=== PATIENT | female | born 1980 | race Hispanic/Latino ===

== ENCOUNTER 2018-10-23 19:35 | Inpatient (IN) | payer MEDICAID, OTHER ==
[2018-10-23 19:36] VITALS: BMI 40.9
[2018-10-23 23:01] LABS: BASO # 0.01 K/mm3 (0.0-2.0); BASO % 0.1 % (0.0-3.0); EOS # 0.4 (0.0-0.7); HEMOGLOBIN 12.8 g/dL (12.0-16.0); LYMPH # 2.4 (1.2-3.4); LYMPH % 27.6 % (22.0-35.0); MEAN CORPUSCULAR HEMOGLOBIN 28.4 pg (25.0-35.0); MEAN PLATELET VOLUME 9.9 fl (7.0-11.0); MONO # 0.6 (0.1-0.6); MONO % 6.8 % (1.0-6.0); RBC 4.51 10^6/uL (3.5-6.1); RED CELL DISTRIBUTION WIDTH 14.1 % (11.5-14.5); WHITE BLOOD COUNT 8.7 10^3/uL (4.5-11.0)
[2018-10-23 23:11] LABS: ACETAMINOPHEN < 10.0 ug/ml (10.0-20.0); SALICYLATE < 1 mg/dL (2.0-20.0)
[2018-10-23 23:13] LABS: ALB/GLOB RATIO 1.4 (1.1-1.8); ALBUMIN 4.3 g/dL (3.0-4.8); ALT/SGPT 13 U/L (7-56); AST/SGOT 20 U/L (14-36); BLOOD UREA NITROGEN 16 mg/dL (7-21); CALCIUM 9.3 mg/dL (8.4-10.5); GFR NON-AFRICAN AMERICAN > 60
[2018-10-23 23:16] LABS: URINE BILIRUBIN NEGATIVE (NEGATIVE); URINE BLOOD SMALL (NEGATIVE); URINE GLUCOSE (UA) NEGATIVE (NEGATIVE); URINE LEUKOCYTE ESTERASE NEGATIVE Leu/uL (NEGATIVE); URINE PROTEIN NEGATIVE mg/dL (<30 mg/dL); URINE UROBILINOGEN 0.2 E.U./dL (<1 E.U./dL)
[2018-10-23 23:24] LABS: URINE APPEARANCE CLEAR (CLEAR); URINE COLOR YELLOW (YELLOW)
[2018-10-23 23:37] LABS: URINE BACTERIA FEW /hpf
[2018-10-24 00:28] LABS: BARBITURATES, UR NEGATIVE (NEGATIVE); BENZODIAZEPINES, UR POSITIVE (NEGATIVE); OPIATES, UR NEGATIVE (NEGATIVE); PHENCYCLIDINE, UR NEGATIVE (NEGATIVE)
[2018-10-24 00:47] VITALS: O2SAT 96
--- NOTE | 2018-10-24 01:33 | ED PDOC ---
Arrival/HPI - General Historian: Patient - History of Present Illness Narrative History of Present Illness (Text): 10/24/18 01:29 38-year-old female with a history of PTSD, depression presents today with depression and hallucinations. Patient denies headaches dizziness or weakness. No fevers or chills. No abdominal pain. No nausea vomiting diarrhea or constipation. Patient states she's been taking her medications as prescribed but her symptoms seem to be worsening. <Symone Pisano - Last Filed: 10/24/18 01:29> <Juan José Ceballos - Last Filed: 10/24/18 02:10> - General Chief Complaint: Psychiatric Evaluation Time Seen by Provider: 10/23/18 19:40 Past Medical History - Provider Review Nursing Documentation Reviewed: Yes - Travel History Have you recently traveled outside [place] w/in the past 3 mons?: No - Infectious Disease Hx of Infectious Diseases: None - Reproductive Currently : No - Cardiac Hx Cardiac Disorders: No Hx Hypertension: Yes - Pulmonary Hx Tuberculosis: No - Neurological HX Cerebrovascular Accident: No Hx Seizures: No - HEENT Hx HEENT Disorder: No - Renal Hx Renal Disorder: No - Endocrine/Metabolic Hx Endocrine Disorders: No - Hematological/Oncological Hx Cancer: No - Integumentary Hx Dermatological Disorder: No - Musculoskeletal/Rheumatological Hx Musculoskeletal Disorders: No - Gastrointestinal Hx Gastrointestinal Disorders: No - Genitourinary/Gynecological Hx Sexually Transmitted Diseases: No - Psychiatric Hx Depression: Yes Hx Substance Use: No - Anesthesia Hx Anesthesia: No <Symone Pisano - Last Filed: 10/24/18 01:29> Family/Social History - Physician Review Nursing Documentation Reviewed: Yes Family/Social History: Unknown Family HX Smoking Status: Never Smoked Hx Alcohol Use: No Hx Substance Use: No <Symone Pisano - Last Filed: 10/24/18 01:29> Allergies/Home Meds <Symone Pisano - Last Filed: 10/24/18 01:29> <Juan José Ceballos - Last Filed: 10/24/18 02:10> Allergies/Adverse Reactions: Allergies No Known Allergies Allergy (Verified 08/15/16 17:31) Review of Systems - Review of Systems Constitutional: absent: Fatigue, Fevers Respiratory: absent: SOB, Cough Cardiovascular: absent: Chest Pain, Palpitations Gastrointestinal: absent: Abdominal Pain, Nausea, Vomiting Genitourinary Female: absent: Dysuria, Frequency, Hematuria Musculoskeletal: absent: Back Pain, Neck Pain Skin: absent: Rash, Pruritis Neurological: absent: Headache, Dizziness Psychiatric: Depression. absent: Anxiety <Symone Pisano - Last Filed: 10/24/18 01:29> Physical Exam Vital Signs Reviewed: Yes Vital Signs Temp Pulse Resp BP Pulse Ox 10/24/18 00:43 97.7 F 90 18 136/84 96 10/23/18 21:54 98.1 F 90 18 168/115 H 100 Temperature: Afebrile Blood Pressure: Hypertensive Pulse: Regular Respiratory Rate: Normal Appearance: Positive for: Well-Appearing, Non-Toxic, Comfortable Pain Distress: None Mental Status: Positive for: Alert and Oriented X 3 - Systems Exam Head: Present: Atraumatic Neck: Present: Normal Range of Motion Respiratory/Chest: Present: Clear to Auscultation Cardiovascular: Present: Regular Rate and Rhythm Abdomen: No: Tenderness, Rebound, Guarding Upper Extremity: Present: Normal ROM Lower Extremity: Present: Normal ROM Neurological: Present: GCS=15 Skin: Present: Warm, Dry, Normal Color. No: Rashes Psychiatric: Present: Alert, Oriented x 3 <Symone Pisano - Last Filed: 10/24/18 01:29> Vital Signs Temp Pulse Resp BP Pulse Ox 10/24/18 00:43 97.7 F 90 18 136/84 96 10/23/18 21:54 98.1 F 90 18 168/115 H 100 <Juan José Ceballos - Last Filed: 10/24/18 02:10> Medical Decision Making ED Course and Treatment: 10/24/18 01:30 Patient is nontoxic well-appearing in no distress vital signs are stable. CBC WNL CMP WNL Tylenol WNL Salicylate WNL Alcohol level WNL Urine drug screen + marijuana, + infected amines positive benzos UA; no leukocytes cxr: wnl ekg normal sinus rhythm at 86 bpm normal axis no ST elevations QTC 442 pt is medically cleared for PES evaluation Patient was seen and evaluated by PES screener: drake Signed voluntarily to psychiatric floor Impression; depression Admit to behavioral health - Lab Interpretations Lab Results: Total Bilirubin 0.4 mg/dL (0.2-1.3) 10/23/18 22:58 AST 20 U/L (14-36) 10/23/18 22:58 ALT 13 U/L (7-56) 10/23/18 22:58 Alkaline Phosphatase 73 U/L (38-126) 10/23/18 22:58 Total Protein 7.4 g/dL (5.8-8.3) 10/23/18 22:58 Albumin 4.3 g/dL (3.0-4.8) 10/23/18 22:58 Globulin 3.0 gm/dL 10/23/18 22:58 Albumin/Globulin Ratio 1.4 (1.1-1.8) 10/23/18 22:58 Urine Color Yellow (YELLOW) 10/23/18 23:09 Urine Appearance Clear (CLEAR) 10/23/18 23:09 Urine pH 6.0 (4.7-8.0) 10/23/18 23:09 Ur Specific [place] >= 1.030 (1.005-1.035) 10/23/18 23:09 Urine Protein Negative mg/dL (<30 mg/dL) 10/23/18 23:09 Urine Glucose (UA) Negative mg/dL (NEGATIVE) 10/23/18 23:09 Urine Ketones Trace mg/dL (NEGATIVE) H 10/23/18 23:09 Urine Blood Small (NEGATIVE) H 10/23/18 23:09 Urine Nitrate Negative (NEGATIVE) 10/23/18 23:09 Urine Bilirubin Negative (NEGATIVE) 10/23/18 23:09 Urine Urobilinogen 0.2 E.U./dL (<1 E.U./dL) 10/23/18 23:09 Ur Leukocyte Esterase Negative Gayle/uL (NEGATIVE) 10/23/18 23:09 Urine RBC 1 - 3 /hpf (0-2) H 10/23/18 23:09 Urine WBC 1 - 3 /hpf (0-6) 10/23/18 23:09 Ur Epithelial Cells 1 - 3 /hpf (0-5) 10/23/18 23:09 Urine Bacteria Few /hpf (NONE) 10/23/18 23:09 Urine Other Mucus /hpf 10/23/18 23:09 - RAD Interpretation Radiology Orders: 10/24/18 00:35 CHEST PORTABLE [RAD] Stat <AzoSymone paige T - Last Filed: 10/24/18 01:29> - Lab Interpretations Lab Results: Total Bilirubin 0.4 mg/dL (0.2-1.3) 10/23/18 22:58 AST 20 U/L (14-36) 10/23/18 22:58 ALT 13 U/L (7-56) 10/23/18 22:58 Alkaline Phosphatase 73 U/L (38-126) 10/23/18 22:58 Total Protein 7.4 g/dL (5.8-8.3) 10/23/18 22:58 Albumin 4.3 g/dL (3.0-4.8) 10/23/18 22:58 Globulin 3.0 gm/dL 10/23/18 22:58 Albumin/Globulin Ratio 1.4 (1.1-1.8) 10/23/18 22:58 Urine Color Yellow (YELLOW) 10/23/18 23:09 Urine Appearance Clear (CLEAR) 10/23/18 23:09 Urine pH 6.0 (4.7-8.0) 10/23/18 23:09 Ur Specific [place] >= 1.030 (1.005-1.035) 10/23/18 23:09 Urine Protein Negative mg/dL (<30 mg/dL) 10/23/18 23:09 Urine Glucose (UA) Negative mg/dL (NEGATIVE) 10/23/18 23:09 Urine Ketones Trace mg/dL (NEGATIVE) H 10/23/18 23:09 Urine Blood Small (NEGATIVE) H 10/23/18 23:09 Urine Nitrate Negative (NEGATIVE) 10/23/18 23:09 Urine Bilirubin Negative (NEGATIVE) 10/23/18 23:09 Urine Urobilinogen 0.2 E.U./dL (<1 E.U./dL) 10/23/18 23:09 Ur Leukocyte Esterase Negative Gayle/uL (NEGATIVE) 10/23/18 23:09 Urine RBC 1 - 3 /hpf (0-2) H 10/23/18 23:09 Urine WBC 1 - 3 /hpf (0-6) 10/23/18 23:09 Ur Epithelial Cells 1 - 3 /hpf (0-5) 10/23/18 23:09 Urine Bacteria Few /hpf (NONE) 10/23/18 23:09 Urine Other Mucus /hpf 10/23/18 23:09 - RAD Interpretation Radiology Orders: 10/24/18 00:35 CHEST PORTABLE [RAD] Stat <Juan José Ceballos - Last Filed: 10/24/18 02:10> - PA / TROLLEY OPERATOR / Resident Statement JEFFREY has reviewed & agrees with the documentation as recorded. JEFFREY has examined the patient and agrees with the treatment plan. <Juan José Ceballos - Last Filed: 10/24/18 02:10> Disposition/Present on Arrival - Present on Arrival Any Indicators Present on Arrival: No History of DVT/PE: No History of Uncontrolled Diabetes: No Urinary Catheter: No History of Decub. Ulcer: No History Surgical Site Infection Following: None - Disposition Have Diagnosis and Disposition been Completed?: Yes Disposition Time: 22:25 Patient Plan: Admission <Symone Pisano - Last Filed: 10/24/18 01:29> <Juan José Ceballos - Last Filed: 10/24/18 02:10> - Disposition Diagnosis: Depression Disposition: HOSPITALIZED Condition: FAIR
[2018-10-24] MEDS ORDERED: Alum-Mag Hydrox-Simethicone Susp (30 mL) PO PRN (03:20)
[2018-10-24] MEDS ORDERED: Magnesium Hydroxide Susp 30 ml UD PO PRN (03:20)
--- NOTE | 2018-10-24 03:41 | PCM.BM ---
<Milka Alicia - Last Filed: 10/24/18 03:38> Treatment Plan Problems - Problems identified on initial assessmt High risk suicide Date Initiated: 10/24/18 Time Initiated: 03:38 Assessment reference: NA Status: Active Ineffective coping Date Initiated: 10/24/18 Time Initiated: 03:39 Assessment reference: NA Status: Active Hopelessness/Helplesness Date Initiated: 10/24/18 Time Initiated: 03:39 Assessment reference: NA Status: Active Altered sleep Date Initiated: 10/24/18 Time Initiated: 03:39 Assessment reference: NA Status: Active High risk violence Date Initiated: 10/24/18 Time Initiated: 03:40 Assessment reference: NA Status: Active Treatment assets and liabiliti Patient Assests: adapts well, cooperative, educated, insightful, self-reliant, ADL independent, physically healthy, good support system, good past tx response, cognitively intact, good interpersonal skills Patient Liabilities: relationship conflicts, substance abuse - Milieu Protocol Maintain good personal hygiene: daily Encourage regular showers, daily Remind patient to perform daily oral care, daily Assist patient to perform ADL's Conduct patient checks and document Observation sheet: Q15 minutes Maintain personal safety: daily Educate patient to report safety concerns to staff, daily Monitor environment for contraband/sharps Medication safety: Monitor for expected outcome, potential side effects: daily, Assess barriers to learning: daily, Assess readiness for medication education: daily Family Contact Family contact: Patient agrees to contact Family contact comment: Father Phone number [phone] Discharge/Continuing Care - Education Needs Education Needs: Patient Medication, Patient Diagnosis/Disease Process, Patient Coping Skills, Patient Anger Management skills, Patient Health Practices/Safety, Patient Aftercare Safety Plan - Discharge Discharge Criteria: Tolerates medication w/o severe side effects, Free of Suicidal thoughts, Free of Homicidal thoughts, Free of paranoid thoughts, Free of agitation, Normal sleep pattern, Reduction of target symptoms Discharge to:: Home <Izzy Aviles - Last Filed: 10/24/18 14:50> - Diagnosis (1) Bipolar affective disorder, mixed, severe, with psychotic behavior Status: Acute Interventions: 10/24/18 14:50 Psychoeducation/psychotherapy Psychopharmacology/adjustment of medications as needed/ monitoring possible side effects Evaluate pt on daily basis Compliance with medications and follow up appointments Long acting medication if pt is noncompliant with pill form Suicide and homicide risk assessment and prevention, coping strategies, safety plan Relapse prevention Reduction of symptoms Improve functional status Possible assertive community treatment Cognitive behavioral therapy Family involvement Possible social skill training as outpatient <Radha Mcmillan - Last Filed: 10/25/18 15:14> Family Contact Family involvement: Famliy/SO not involved - Outside Agency Dr. Panchito Aguayo Care involvment: Information-sharing Agency contact name: Dr. Panchito Aguayo Agency contact number: [phone] <Keerthi Tucker - Last Filed: 10/26/18 16:29>
[2018-10-24 07:22] VITALS: RESP 20
[2018-10-24 08:34] LABS: GLUCOSE,FASTING 101 mg/dL (65-110); HDL CHOLESTEROL 50 mg/dL (29-60); LDL CHOLESTEROL 110 mg/dL (0-129)
--- NOTE | 2018-10-24 08:56 | RAD ---
Date of service: 10/24/2018 HISTORY: pes eval COMPARISON: 08/15/2016 FINDINGS: LUNGS: No active pulmonary disease. PLEURA: No significant pleural effusion identified, no pneumothorax apparent. CARDIOVASCULAR: No aortic atherosclerotic calcification present. Normal cardiac size. No pulmonary vascular congestion. OSSEOUS STRUCTURES: No significant abnormalities. VISUALIZED UPPER ABDOMEN: Normal. OTHER FINDINGS: None. IMPRESSION: No active disease.
--- NOTE | 2018-10-24 11:58 | CARD ---
APPROVED REPORT Date of service: 10/23/2018 EKG Measurement Heart [id number] <Conclusion> Normal sinus rhythm Normal ECG
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
--- NOTE | 2018-10-24 19:30 | CON ---
DATE: 10/24/2018 HISTORY OF PRESENT ILLNESS: I know Tammy for many years. She is in the psychiatric floor was consulted medically. She is a 38-year-old white female who known for very long time, who presents with depression, history of posttraumatic stress disorder and hallucinations. She is going to while she is getting divorce. She is losing her house. She might be back with the parents. She is very stressed about past. She has been crying a lot. She also said she had some hallucinations. She has hypertension and depression history. FAMILY HISTORY: Unknown family history. SOCIAL HISTORY: No smoking cigarettes, no alcohol, but she does have marijuana in her urine drug screen. ALLERGIES: NO KNOWN DRUG ALLERGIES. REVIEW OF SYSTEMS: She is not fatigue, no fever. No shortness of breath or cough. No chest pain or palpitation. No abdominal pain. No nausea or vomiting. No problems urinating. No back pain. No neck pain. No skin rashes or ulcers. No headache or dizziness. She is very depressed, but anxious. PHYSICAL EXAMINATION: VITAL SIGNS: 97.7 temperature, 90 pulse, 18 respiratory rate, 136/84 blood pressure and 96% O2 sat on room air. HEENT: Head is atraumatic and normocephalic. Throat is moist. NECK: Supple. HEART: Regular rate. LUNGS: Clear to auscultation. ABDOMEN: Soft and nontender. Positive bowel sounds. Mild obesity. EXTREMITIES: No edema. NEUROLOGIC: GCS is 15. Cranial nerves II through XII is grossly intact. neurologically, she is intact. SKIN: Warm and dry. No apparent rashes or ulcers. Alert and oriented x3. Thyroid midline. No palpable appreciable lymphadenopathy. LABORATORY DATA: She had multiple tests done. The chest x-ray was clear. EKG is pending. She has 8.7 white count, 12.8 hemoglobin, 38.8 hematocrit with 220 platelets. Sodium 146, potassium 4.3, BUN 16, creatinine 0.9, GFR is greater than 60, sugar is 101 calcium is 9.3, total bili is 0.4, AST is 20, ALT is 13, alk phos 73, total protein 7.4, albumin 4.3, globulin 3, triglycerides 83, cholesterol 175, LDL 110, HDL 50 and TSH is 2.06. Urine showed trace ketones and she is positive for amphetamines, benzodiazepines and marijuana. PLAN: I will follow her psychiatry closely and is known her for many years. I will continue to follow her medically. Mahamed Keenan DO MTDKaren
--- NOTE | 2018-10-25 10:01 | CP.PCM.CON ---
History of Present Illness - History of Present Illness History of Present Illness: Neurology Consult note Consulted by Dr. Aviles 38 yo female with PMH of HTN, depression, PTSD, bipolar, ADD presented with depression and hallucination. She is currently taking all her medications as prescribed. She states that she has been under stress with multiple stressors. She states that yesterday she was in the park walking and blacked out. She awoke on a park bench crying hysterically. She states initially she was fatigued but does not recall how long the black out lasted, episode was unwitnessed. She also report commend auditory hallucination. She states that usually hears 2 voice one is her "twin brother" the other an unpleasant female voice. She has had these hallucination in the past with times of stress. She denies visual hallucination. She denies headache, dizziness, changes in vision. 12 point ROS is negative except as stated. PMH: HTN, depression, PTSD, schizophrenia, bipolar, ADD PSH: none social history: marijuana use 2-3 times per week, denies smoking or alcohol use family history: HTN, Diabetes, grandfather stroke allergy: NKDA Review of Systems - Review of Systems All systems: reviewed and no additional remarkable complaints except Past Patient History - Infectious Disease Hx of Infectious Diseases: None - Past Social History Smoking Status: Never Smoked - CARDIAC Hx Cardiac Disorders: No Hx Hypertension: Yes - PULMONARY Hx Tuberculosis: No - NEUROLOGICAL HX Cerebrovascular Accident: No Hx Seizures: No - HEENT Hx HEENT Problems: No - RENAL Hx Chronic Kidney Disease: No - ENDOCRINE/METABOLIC Hx Endocrine Disorders: No - HEMATOLOGICAL/ONCOLOGICAL Hx Cancer: No - INTEGUMENTARY Hx Dermatological Problems: No - MUSCULOSKELETAL/RHEUMATOLOGICAL Hx Musculoskeletal Disorders: No - GASTROINTESTINAL Hx Gastrointestinal Disorders: No - GENITOURINARY/GYNECOLOGICAL Hx Sexually Transmitted Disorders: No - PSYCHIATRIC Hx Bipolar Disorder: Yes Hx Depression: Yes Hx Substance Use: Yes (Marijuana 2 to 3 times a day) - SURGICAL HISTORY Hx Surgeries: No - ANESTHESIA Hx Anesthesia: No Meds Allergies/Adverse Reactions: Allergies Allergy/AdvReac Type Severity Reaction Status Date / Time No Known Allergies Allergy Verified 10/24/18 03:58 - Medications Medications: Current Medications Acetaminophen (Tylenol 325mg Tab) 650 mg PO Q6H PRN PRN Reason: Fever >100.4 F Al Hydrox/Mg Hydrox/Simethicone (Maalox Plus 30 Ml) 30 ml PO DAILY PRN PRN Reason: Upset Stomach Aripiprazole (Abilify) 5 mg PO HS [facility] Last Admin: 10/24/18 21:07 Dose: 5 mg Aripiprazole (Abilify) 20 mg PO DAILY [facility] Last Admin: 10/25/18 09:20 Dose: 20 mg Diazepam (Valium) 5 mg PO BID [facility]; Protocol Last Admin: 10/25/18 09:20 Dose: 5 mg Fluoxetine HCl (Prozac) 50 mg PO DAILY [facility] Last Admin: 10/25/18 09:20 Dose: 50 mg Haloperidol (Haldol) 5 mg PO Q6 PRN; Protocol PRN Reason: Agitation Haloperidol Lactate (Haldol) 5 mg IM Q6 PRN; Protocol PRN Reason: Agitation Lorazepam (Ativan) 2 mg PO Q6H PRN; Protocol PRN Reason: Anxiety Lorazepam (Ativan) 2 mg IM Q6H PRN; Protocol PRN Reason: Anxiety Magnesium Hydroxide (Milk Of Magnesia) 30 ml PO DAILY PRN PRN Reason: Constipation Zolpidem Tartrate (Ambien) 10 mg PO HS PRN; Protocol PRN Reason: Insomnia Last Admin: 10/24/18 21:07 Dose: 10 mg Physical Exam - Constitutional Appears: No Acute Distress - Head Exam Head Exam: ATRAUMATIC, NORMAL INSPECTION, NORMOCEPHALIC - Eye Exam Eye Exam: EOMI, Normal appearance, PERRL Pupil Exam: NORMAL ACCOMODATION, PERRL - ENT Exam ENT Exam: Mucous Membranes Moist - Respiratory Exam Respiratory Exam: Clear to Auscultation Bilateral, NORMAL BREATHING PATTERN. absent: Prolonged Expiratory Phase, Rales, Rhonchi, Wheezes, Respiratory Distress - Cardiovascular Exam Cardiovascular Exam: REGULAR RHYTHM. absent: Bradycardia, Tachycardia, Diastolic murmur, Systolic Murmur - Extremities Exam Extremities exam: Positive for: normal inspection. Negative for: pedal edema, tenderness - Neurological Exam Neurological exam: Alert, Oriented x3 - Expanded Neurological Exam Expanded Patient oriented to: person, place, time Cranial nerves: EOM's Intact: Normal, Facial Palsey w/Forehead Movement: Normal, Facial Palsey w/o Forehead Movement: Normal, Facial Sensation: Normal, Gag Reflex: Normal, Nystagmus: Normal, Tongue Deviation: Normal Cerebellar Function: Finger to Nose: Normal Upper motor neuron: Pronator Drift: Normal Neuro motor strength exam: Left Upper Extremity: 5, Right Upper Extremity: 5, Left Lower Extremity: 5, Right Lower Extremity: 5 Coma Scale Eye Opening: SPONTANEOUS Coma Scale Motor Response: OBEYS COMMANDS Coma Scale Verbal: Oriented Coma Scale Total: 15 - Skin Skin Exam: Dry, Intact, Normal Color, Warm Results - Vital Signs Recent Vital Signs: Last Vital Signs Temp 98.1 F 10/25/18 07:19 Pulse 68 10/25/18 07:19 Resp 20 10/25/18 07:19 BP 121/81 10/25/18 07:19 Pulse Ox 96 10/24/18 00:43 - Labs Result Diagrams: 10/23/18 22:58 10/23/18 22:58 Labs: Laboratory Results - last 24 hr 10/24/18 07:30 RPR Nonreactive Assessment & Plan - Assessment and Plan (Free Text) Assessment: 38 yo female with PMH of HTN, depression, PTSD, bipolar, ADD presented with depression and hallucination, neurology was consulted to rule out seizures most likely dissociative fugue. Plan: - UDS was positive for marijuana and amphetamines and benzodiazepines - will obtain EEG to rule out epilepsy - follow up MRI with contrast - further recommendation by Dr. Gonzales Case discussed with Dr. Gonzales
--- NOTE | 2018-10-25 12:11 | PN ---
DATE: 10/25/2018 SUBJECTIVE: I saw her in the psychiatric unit. She is doing much better. She is feeling much better. She is on Abilify, Ambien, Ativan, Haldol, Maalox, milk of magnesia, Prozac, Tylenol, Valium. She has no complaints to me. She is smiling. She is participating, and she is taking the medications. PHYSICAL EXAMINATION: VITAL SIGNS: She has 98.1 temperature, 68 pulse, 121/81 blood pressure, 20 respiratory rate, 90% O2 sat on room air. HEENT: Head is atraumatic, normocephalic. HEART: Regular rate. LUNGS: Clear to auscultation. ABDOMEN: Soft, nontender. Positive bowel sounds. Obese. EXTREMITIES: No edema. LABORATORY DATA: Labs on 10/23/2018 were very good. ASSESSMENT AND PLAN: I will continue to follow her. She is comfortable. She is feeling well. She is in good spirits as per Psychiatry. I do think she has improved greatly and she tells me she is not depressed at this time. Mahamed Keenan DO MTDD
--- NOTE | 2018-10-25 14:18 | PCM.PYCHPN ---
Psychiatric Progress Note - Psychiatric Progress Note Patient seen today, length of contact: 30 minutes Patient Chief Complaint: "I still hear some noises, no command type hallucinations today" Problems Identified/Issues Discussed: Risk/benefits and alternatives of medications discussed, suicide/ homicide prevention, past psychiatric h/o, current psychiatric symptoms, medical problems, risk/benefits and alternatives of medications, medications compliance, coping strategies, substance abuse h/o, relapse prevention, importance of follow up with psychiatrist and therapist, discharge plan. Medical Problems: Obesity, right foot numbness, possible seizures Diagnostic Results: 10/23/18 22:58 10/23/18 22:58 Lab Results 10/24/18 07:30: RPR Nonreactive 10/24/18 07:30: TSH 3rd Generation 2.06 10/24/18 07:30: Fasting Glucose 101, Triglycerides 83, Cholesterol 175, LDL Cholesterol Direct 110, HDL Cholesterol 50 10/23/18 23:09: Urine Color Yellow, Urine Appearance Clear, Urine pH 6.0, Ur Specific [place] >= 1.030, Urine Protein Negative, Urine Glucose (UA) Negative, Urine Ketones Trace H, Urine Blood Small H, Urine Nitrate Negative, Urine Bilirubin Negative, Urine Urobilinogen 0.2, Ur Leukocyte Esterase Negative, Urine RBC 1 - 3 H, Urine WBC 1 - 3, Ur Epithelial Cells 1 - 3, Urine Bacteria Few, Urine Other Mucus 10/23/18 23:00: Urine Opiates Screen Negative, Urine Methadone Screen Negative, Ur Barbiturates Screen Negative, Ur Phencyclidine Scrn Negative, Ur Amphetamines Screen Positive H, U Benzodiazepines Scrn Positive H, U Oth Cocaine Metabols Negative, U Cannabinoids Screen Positive H 10/23/18 22:58: Alcohol, Quantitative < 10 10/23/18 22:58: Salicylates < 1 L, Acetaminophen < 10.0 L 10/23/18 22:58: Sodium 142, Potassium 4.3, Chloride 107, Carbon Dioxide 26, Anion Gap 13, BUN 16, Creatinine 0.9, Est GFR ( Amer) > 60, Est GFR (Non- Af Amer) > 60, Random Glucose 91, Calcium 9.3, Total Bilirubin 0.4, AST 20, ALT 13, Alkaline Phosphatase 73, Total Protein 7.4, Albumin 4.3, Globulin 3.0, A lbumin/Globulin Ratio 1.4 10/23/18 22:58: WBC 8.7, RBC 4.51, Hgb 12.8, Hct 38.8, MCV 86.0, MCH 28.4, MCHC 33.0, RDW 14.1, Plt Count 320, MPV 9.9, Neut % (Auto) 61.5, Lymph % (Auto) 27.6, [place] % (Auto) 6.8 H, Eos % (Auto) 4.0, Baso % (Auto) 0.1, Lymph # (Auto) 2.4, [place] # (Auto) 0.6, Eos # (Auto) 0.4, Baso # (Auto) 0.01, Absolute Neuts (auto) 5.35 Vital Signs Temp Pulse Pulse Resp BP Pulse Ox 10/25/18 07:19 98.1 F 68 20 121/81 10/24/18 16:00 86 131/88 10/24/18 07:21 98.1 F 80 20 121/82 10/24/18 03:59 83 18 10/24/18 00:43 97.7 F 90 18 136/84 96 10/23/18 21:54 98.1 F 90 18 168/115 H 100 DSM 5 Symptoms Update: Shortly pt is 38yo female with h/o schizoaffective disorder bipolar type vs bipolar disorder with psychosis two previous hospitalization first in in 2014, second in 2016 about a year ago to this facility, currently under care of , , mother of two (pt's and her parents takes care of kids now), patient was brought in to the hospital by her for evaluation of depression, command type hallucinations, patient was not able to contract for safety in the emergency room, patient required further evaluation and stabilization and medication adjustment. Patient was seen and examined today at the treatment team meeting with medical students, social services coordinator, RN, recreational therapist, patient presented with acceptable personal hygiene, Fair ADLs. Patient reported that she slept well last night, she reported that she still hears some noises and whispers but denied any command type hallucinations, patient reported that her mood is improving. As per staff patient is visible in the unit, no agitation no aggression, patient is compliant with the unit rules and regulations. So far patient tolerates medications well, no side effects observed or reported, aims 0, no EPS. Patient stated that "probably I was overly exaggerating my symptoms." DSM 5 Diagnosis: Bipolar disorder with psychosis versus schizoaffective disorder Patient is not on stimulants, rule out substance-induced psychosis Medication Change: Yes (Prozac increased, Abilify increased) Medical Record Reviewed: Yes Consults ordered or reviewed: Patient was seen by medical team, x-ray of the right foot ordered Neurology consultation was called to rule out seizures Mental Status Examination - Cognitive Function Orientation: Person, Place, Situation, Time Memory: Intact Attention: Poor Concentration: Poor Association: WNL Fund of Knowledge: WNL - Mood Mood: Depressed, Anxious - Affect Affect: Flat (Tearful) - Formal Thought Process Formal Thought Process: Hallucinations, Delusions - Suicidal Ideation Suicidal Ideation: No - Homicidal Ideation Homicidal Ideation: No Goal/Treatment Plan - Goal/Treatment Plan Need for Continued Stay: Remain at risks for inpatient hospitalization, Severe depression anxiety, Discharge may exacerbated symptoms, Severe functional i mpairment Progress Toward Problem(s) and Goals/Treatment Plan: Milieu/structure/supportive therapy SW consultation for discharge plan and social issues Med management: prozac 50mg po daily for depression/anxiety pt was on stimulants, but will not resume it for now abilify 25mg po daily for mood stabilization and psychosis valium 5mg po bid for anxiety ambien 10mg po hs as needed for insomnia Medications were confirmed with patient pharmacy Stimulants will be not resumed Abilify was increased, Prozac increased Neurology consultation to rule out seizure disorder (episodes of blackouts) Family involvement Follow up on labs Will monitor closely Pt was educated about risk/benefits and alternatives of medications, coping strategies (safety plan, suicide prevention), relapse prevention, importance of follow up with psychiatrist and therapist, stay away from drugs/alcohol/smoking Estimated Date of D/C: 10/27/18
--- NOTE | 2018-10-26 08:37 | CP.PCM.PN ---
<Deedee Serrano - Last Filed: 10/26/18 16:28> Subjective - Date & Time of Evaluation Date of Evaluation: 10/26/18 Time of Evaluation: 09:00 - Subjective Subjective: Neurology Progresses note Patient seen and evaluated at bedside in psych unit. No acute distress. She reports overall improvement but continues to have some auditory hallucination. Patient also reports mild anxiety for the MRI. She denies headaches, dizziness, vision changes. No other complaints at this time, 12 point ROS is negative expect as stated. Objective - Vital Signs/Intake and Output Vital Signs (last 24 hours): Temp Pulse Resp BP Pulse Ox 97.9 F 75 20 116/79 96 10/26/18 07:02 10/26/18 07:02 10/26/18 07:02 10/26/18 07:02 10/24/18 00:43 - Medications Medications: Current Medications Acetaminophen (Tylenol 325mg Tab) 650 mg PO Q6H PRN PRN Reason: Fever >100.4 F Al Hydrox/Mg Hydrox/Simethicone (Maalox Plus 30 Ml) 30 ml PO DAILY PRN PRN Reason: Upset Stomach Aripiprazole (Abilify) 5 mg PO HS [facility] Last Admin: 10/25/18 20:59 Dose: 5 mg Aripiprazole (Abilify) 20 mg PO DAILY [facility] Last Admin: 10/25/18 09:20 Dose: 20 mg Diazepam (Valium) 5 mg PO BID [facility]; Protocol Last Admin: 10/25/18 17:47 Dose: 5 mg Fluoxetine HCl (Prozac) 50 mg PO DAILY [facility] Last Admin: 10/25/18 09:20 Dose: 50 mg Haloperidol (Haldol) 5 mg PO Q6 PRN; Protocol PRN Reason: Agitation Haloperidol Lactate (Haldol) 5 mg IM Q6 PRN; Protocol PRN Reason: Agitation Lorazepam (Ativan) 2 mg PO Q6H PRN; Protocol PRN Reason: Anxiety Lorazepam (Ativan) 2 mg IM Q6H PRN; Protocol PRN Reason: Anxiety Magnesium Hydroxide (Milk Of Magnesia) 30 ml PO DAILY PRN PRN Reason: Constipation Zolpidem Tartrate (Ambien) 10 mg PO HS PRN; Protocol PRN Reason: Insomnia Last Admin: 10/25/18 21:00 Dose: 10 mg - Labs Labs: 10/23/18 22:58 10/23/18 22:58 - Additional Findings Additional findings: - Constitutional Appears: No Acute Distress - Head Exam Head Exam: ATRAUMATIC, NORMAL INSPECTION, NORMOCEPHALIC - Eye Exam Eye Exam: EOMI, Normal appearance, PERRL Pupil Exam: NORMAL ACCOMODATION, PERRL - ENT Exam ENT Exam: Mucous Membranes Moist - Respiratory Exam Respiratory Exam: Clear to Auscultation Bilateral, NORMAL BREATHING PATTERN. absent: Prolonged Expiratory Phase, Rales, Rhonchi, Wheezes, Respiratory Distress - Cardiovascular Exam Cardiovascular Exam: REGULAR RHYTHM. absent: Bradycardia, Tachycardia, Diastolic murmur, Systolic Murmur - Extremities Exam Extremities exam: Positive for: normal inspection. Negative for: pedal edema, tenderness - Neurological Exam Neurological exam: Alert, Oriented x3 - Expanded Neurological Exam Expanded Patient oriented to: person, place, time Cranial nerves: EOM's Intact: Normal, Facial Palsey w/Forehead Movement: Normal, Facial Palsey w/o Forehead Movement: Normal, Facial Sensation: Normal, Gag Reflex: Normal, Nystagmus: Normal, Tongue Deviation: Normal Cerebellar Function: Finger to Nose: Normal Upper motor neuron: Pronator Drift: Normal Neuro motor strength exam: Left Upper Extremity: 5, Right Upper Extremity: 5, Left Lower Extremity: 5, Right Lower Extremity: 5 Coma Scale Eye Opening: SPONTANEOUS Coma Scale Motor Response: OBEYS COMMANDS Coma Scale Verbal: Oriented Coma Scale Total: 15 - Skin Skin Exam: Dry, Intact, Normal Color, Warm Assessment and Plan - Assessment and Plan (Free Text) Assessment: 38 yo female with PMH of HTN, depression, PTSD, bipolar, ADD presented with depression and hallucination, neurology was consulted to rule out seizures most likely dissociative fugue. Plan: - UDS was positive for marijuana and amphetamines and benzodiazepines - will obtain EEG to rule out epilepsy - MRI with contrast was unremarkable - further recommendation by Dr. Gonzales Case discussed with Dr. Gonzales <Edgard Gonzales - Last Filed: 10/28/18 23:05> Objective - Vital Signs/Intake and Output Vital Signs (last 24 hours): Temp Pulse Resp BP Pulse Ox 97.4 F L 78 20 128/88 96 10/27/18 07:13 10/27/18 07:13 10/27/18 07:13 10/27/18 07:13 10/24/18 00:43 - Labs Labs: 10/27/18 07:35 10/27/18 07:35 Assessment and Plan - Assessment and Plan (Free Text) Assessment: MIss Garcia is a 38 yr old patient with schizophrenia who was not likely to have had seizures, but more likely has delusions from schizophrenia. I examined the patient independently and agree with the above assessment and plan. Dr. Gonzales Neurology
[2018-10-26] MEDS ORDERED: Gadodiamide 287 MG/ML VIAL (20ML) IV ONE (10:11)
--- NOTE | 2018-10-26 11:11 | MRI ---
Date of service: 10/26/2018 PROCEDURE: MRI BRAIN WITH AND WITHOUT CONTRAST HISTORY: r/o seizure COMPARISON: None available. TECHNIQUE: Multiplanar, multisequence MR images of the brain were obtained with and without intravenous contrast enhancement. 20 cc of Omniscan FINDINGS: HEMORRHAGE: None DWI: No evidence of an acute or early subacute infarction. BRAIN PARENCHYMA: No mass,mass effect or edema. No atrophy or chronic microvascular ischemic changes. ENHANCEMENT: No abnormal intracranial enhancement. VENTRICLES: Unremarkable. No hydrocephalus. CRANIUM: Unremarkable. ORBITS: Grossly unremarkable. PARANASAL SINUSES/MASTOIDS: Clear VASCULAR SYSTEM: Skull base flow voids intact. OTHER FINDINGS: None . IMPRESSION: Unremarkable pre and post contrast enhanced MRI of the brain.
--- NOTE | 2018-10-26 11:28 | RAD ---
Date of service: 10/26/2018 PROCEDURE: Right Foot Radiographs. HISTORY: HURT HER FOOT AND HER TOES ARE NUMB COMPARISON: None. FINDINGS: BONES: Normal. No fracture. JOINTS: Normal. SOFT TISSUES: Normal. OTHER FINDINGS: None. IMPRESSION: Normal right foot radiographs.
--- NOTE | 2018-10-26 13:01 | PCM.PYCHPN ---
Psychiatric Progress Note - Psychiatric Progress Note Patient seen today, length of contact: 30 minutes Patient Chief Complaint: "I anxious because of MRI" Problems Identified/Issues Discussed: Risk/benefits and alternatives of medications discussed, suicide/ homicide prevention, past psychiatric h/o, current psychiatric symptoms, medical problems, risk/benefits and alternatives of medications, medications compliance, coping strategies, substance abuse h/o, relapse prevention, importance of follow up with psychiatrist and therapist, discharge plan. Medical Problems: Obesity, right foot numbness, possible seizures Diagnostic Results: 10/23/18 22:58 10/23/18 22:58 Lab Results 10/24/18 07:30: RPR Nonreactive 10/24/18 07:30: TSH 3rd Generation 2.06 10/24/18 07:30: Fasting Glucose 101, Triglycerides 83, Cholesterol 175, LDL Cholesterol Direct 110, HDL Cholesterol 50 10/23/18 23:09: Urine Color Yellow, Urine Appearance Clear, Urine pH 6.0, Ur Specific [place] >= 1.030, Urine Protein Negative, Urine Glucose (UA) Negative, Urine Ketones Trace H, Urine Blood Small H, Urine Nitrate Negative, Urine Bilirubin Negative, Urine Urobilinogen 0.2, Ur Leukocyte Esterase Negative, Urine RBC 1 - 3 H, Urine WBC 1 - 3, Ur Epithelial Cells 1 - 3, Urine Bacteria Few, Urine Other Mucus 10/23/18 23:00: Urine Opiates Screen Negative, Urine Methadone Screen Negative, Ur Barbiturates Screen Negative, Ur Phencyclidine Scrn Negative, Ur Amphetamines Screen Positive H, U Benzodiazepines Scrn Positive H, U Oth Cocaine Metabols Negative, U Cannabinoids Screen Positive H 10/23/18 22:58: Alcohol, Quantitative < 10 10/23/18 22:58: Salicylates < 1 L, Acetaminophen < 10.0 L 10/23/18 22:58: Sodium 142, Potassium 4.3, Chloride 107, Carbon Dioxide 26, Anion Gap 13, BUN 16, Creatinine 0.9, Est GFR ( Amer) > 60, Est GFR (Non- Af Amer) > 60, Random Glucose 91, Calcium 9.3, Total Bilirubin 0.4, AST 20, ALT 13, Alkaline Phosphatase 73, Total Protein 7.4, Albumin 4.3, Globulin 3.0, Albumin/Globulin Ratio 1.4 10/23/18 22:58: WBC 8.7, RBC 4.51, Hgb 12.8, Hct 38.8, MCV 86.0, MCH 28.4, MCHC 33.0, RDW 14.1, Plt Count 320, MPV 9.9, Neut % (Auto) 61.5, Lymph % (Auto) 27.6, [place] % (Auto) 6.8 H, Eos % (Auto) 4.0, Baso % (Auto) 0.1, Lymph # (Auto) 2.4, [place] # (Auto) 0.6, Eos # (Auto) 0.4, Baso # (Auto) 0.01, Absolute Neuts (auto) 5.35 Vital Signs Temp Pulse Pulse Resp BP Pulse Ox 10/25/18 07:19 98.1 F 68 20 121/81 10/24/18 16:00 86 131/88 10/24/18 07:21 98.1 F 80 20 121/82 10/24/18 03:59 83 18 10/24/18 00:43 97.7 F 90 18 136/84 96 10/23/18 21:54 98.1 F 90 18 168/115 H 100 October 26, 2018 Right foot x-ray Impression: Normal right foot radiographs October 26, 2018 MRI of the brain impression: Unremarkable pre-and postcontrast enhanced MRI of the brain. DSM 5 Symptoms Update: Shortly pt is 38yo female with h/o schizoaffective disorder bipolar type vs bipolar disorder with psychosis two previous hospitalization first in in 2014, second in 2016 about a year ago to this facility, currently under care of , , mother of two (pt's and her parents takes care of kids now), patient was brought in to the hospital by her for evaluation of depression, command type hallucinations, patient was not able to contract for safety in the emergency room, patient required further evaluation and stabilization and medication adjustment. Patient was seen and examined today next to the nursing station, patient is scheduled for MRI of the brain as well as EEG of the brain today, patient reported that she feels anxious prior MRI, 10 mg of Valium was given to the patient. Patient got x-ray of the right foot, no acute changes, no fractures. Patient reported that she slept well last night, she reported that she still hears some noises and whispers but denied any command type hallucinations, patient reported that her mood is improving. As per staff patient is visible in the unit, no agitation no aggression, patient is compliant with the unit rules and regulations. So far patient tolerates medications well, no side effects observed or reported, aims 0, no EPS. Patient stated that "probably I was overly exaggerating my symptoms." DSM 5 Diagnosis: Bipolar disorder with psychosis versus schizoaffective disorder Patient is not on stimulants, rule out substance-induced psychosis Medication Change: No (Prozac increased, Abilify increased yesterday) Medical Record Reviewed: Yes Mental Status Examination - Cognitive Function Orientation: Person, Place, Situation, Time Memory: Intact Attention: Poor (Some improvement) Concentration: Poor (Some improvement) Association: WNL Fund of Knowledge: WNL - Mood Mood: Depressed ("I feel little better), Anxious - Affect Affect: Constricted (But more reactive) - Formal Thought Process Formal Thought Process: Hallucinations (Seems to be a chronic, no, hallucinations), Delusions - Suicidal Ideation Suicidal Ideation: No - Homicidal Ideation Homicidal Ideation: No Goal/Treatment Plan - Goal/Treatment Plan Need for Continued Stay: Remain at risks for inpatient hospitalization, Severe depression anxiety, Discharge may exacerbated symptoms, Severe functional impairment Progress Toward Problem(s) and Goals/Treatment Plan: Milieu/structure/supportive therapy SW consultation for discharge plan and social issues Med management: prozac 50mg po daily for depression/anxiety pt was on stimulants, but will not resume it for now abilify 25mg po daily for mood stabilization and psychosis valium 5mg po bid for anxiety ambien 10mg po hs as needed for insomnia Medications were confirmed with patient pharmacy Stimulants will be not resumed Neurology consultation appreciated Medical consultation appreciated Family involvement Follow up on labs Will monitor closely Pt was educated about risk/benefits and alternatives of medications, coping strategies (safety plan, suicide prevention), relapse prevention, importance of follow up with psychiatrist and therapist, stay away from drugs/alcohol/smoking Estimated Date of D/C: 10/27/18
--- NOTE | 2018-10-26 14:21 | PN ---
DATE: 10/26/2018 SUBJECTIVE: I saw her resting in bed this morning. She slept well last night. She is in the psychiatric floor. MEDICATIONS: She is on Abilify, Ambien, Ativan, Haldol, Maalox, milk of magnesia, Prozac, Tylenol, and Valium. She is smiling and happy and tells me she is feeling better medically from depression. PHYSICAL EXAMINATION: VITAL SIGNS: She has 97.9 temperature, 75 pulse, 116/79 blood pressure, 20 respiratory rate. HEAD: Atraumatic, normocephalic. Smiling. HEART: Regular rate. LUNGS: Decreased breath sounds. ABDOMEN: Soft, obese. EXTREMITIES: No edema. LABORATORY DATA: She did have lab test done on 10/23/2018, CBC was fine, chemistry was fine, urine was fine. Toxicology did show amphetamines, benzodiazepines, cannabis. Serology was RPR nonreactive. ASSESSMENT AND PLAN: There is a consult with Neurology due to the blackout. There is an x-ray of the right foot that is pending where she had some right foot pain, that has not been done yet. We are ruling out seizures with this test being done. There is an electroencephalogram to be performed, magnetic resonance imaging of the brain and we will see how she does. I will order more blood tests for tomorrow. I discussed at length her situation and we will see what we find in the magnetic resonance imaging of the brain and the electroencephalogram. The history does not sound like a seizure, but we will find out and we will get an x-ray of the foot to see if she did anything to the bones of that right foot. We will continue aggressive treatment and care and she is very depressed, which is improved greatly. Mahamed Keenan DO
[2018-10-27 07:14] VITALS: BP 128/88; PULSE 78; TEMP 97.4
[2018-10-27 07:47] LABS: HEMOGLOBIN 12.5 g/dL (12.0-16.0); MEAN CELL VOLUME 85.9 fl (80.0-105.0); MEAN CORPUSCULAR HEMOGLOBIN 27.6 pg (25.0-35.0); MEAN CORPUSCULAR HGB CONC 32.1 g/dl (31.0-37.0); MEAN PLATELET VOLUME 9.8 fl (7.0-11.0); RBC 4.53 10^6/uL (3.5-6.1); RED CELL DISTRIBUTION WIDTH 13.7 % (11.5-14.5); WHITE BLOOD COUNT 5.3 10^3/uL (4.5-11.0)
[2018-10-27 08:09] LABS: ALB/GLOB RATIO 1.2 (1.1-1.8); ALBUMIN 3.7 g/dL (3.0-4.8); ALT/SGPT 9 U/L (7-56); AST/SGOT 14 U/L (14-36); BLOOD UREA NITROGEN 17 mg/dL (7-21); CALCIUM 8.9 mg/dL (8.4-10.5); GFR NON-AFRICAN AMERICAN > 60
--- NOTE | 2018-10-27 09:17 | CP.PCM.PN ---
<Karlo Bliss - Last Filed: 10/27/18 10:22> Subjective - Date & Time of Evaluation Date of Evaluation: 10/27/18 Time of Evaluation: 09:13 - Subjective Subjective: Neurology Progress Note: Patient seen and assessed in BHU at [facility]. No acute events overnight noted. Patient had EEG done yesterday. No complaints offered. Further 12 point ROS unremarkable at this time. Objective - Vital Signs/Intake and Output Vital Signs (last 24 hours): Temp Pulse Resp BP Pulse Ox 97.4 F L 78 20 128/88 96 10/27/18 07:13 10/27/18 07:13 10/27/18 07:13 10/27/18 07:13 10/24/18 00:43 - Medications Medications: Current Medications Acetaminophen (Tylenol 325mg Tab) 650 mg PO Q6H PRN PRN Reason: Fever >100.4 F Al Hydrox/Mg Hydrox/Simethicone (Maalox Plus 30 Ml) 30 ml PO DAILY PRN PRN Reason: Upset Stomach Aripiprazole (Abilify) 5 mg PO HS [facility] Last Admin: 10/26/18 21:11 Dose: 5 mg Aripiprazole (Abilify) 20 mg PO DAILY [facility] Last Admin: 10/26/18 08:37 Dose: 20 mg Diazepam (Valium) 5 mg PO BID [facility]; Protocol Last Admin: 10/26/18 17:04 Dose: 5 mg Fluoxetine HCl (Prozac) 50 mg PO DAILY [facility] Last Admin: 10/26/18 08:38 Dose: 50 mg Haloperidol (Haldol) 5 mg PO Q6 PRN; Protocol PRN Reason: Agitation Haloperidol Lactate (Haldol) 5 mg IM Q6 PRN; Protocol PRN Reason: Agitation Lorazepam (Ativan) 2 mg PO Q6H PRN; Protocol PRN Reason: Anxiety Lorazepam (Ativan) 2 mg IM Q6H PRN; Protocol PRN Reason: Anxiety Magnesium Hydroxide (Milk Of Magnesia) 30 ml PO DAILY PRN PRN Reason: Constipation Zolpidem Tartrate (Ambien) 10 mg PO HS PRN; Protocol PRN Reason: Insomnia Last Admin: 10/26/18 21:11 Dose: 10 mg - Labs Labs: 10/27/18 07:35 10/27/18 07:35 - Additional Findings Additional findings: - Constitutional Appears: No Acute Distress - Head Exam Head Exam: ATRAUMATIC, NORMAL INSPECTION, NORMOCEPHALIC - Eye Exam Eye Exam: EOMI, Normal appearance, PERRL Pupil Exam: NORMAL ACCOMODATION, PERRL - ENT Exam ENT Exam: Mucous Membranes Moist - Respiratory Exam Respiratory Exam: Clear to Auscultation Bilateral, NORMAL BREATHING PATTERN. absent: Prolonged Expiratory Phase, Rales, Rhonchi, Wheezes, Respiratory Distress - Cardiovascular Exam Cardiovascular Exam: REGULAR RHYTHM. absent: Bradycardia, Tachycardia, Diastolic murmur, Systolic Murmur - Extremities Exam Extremities exam: Positive for: normal inspection. Negative for: pedal edema, tenderness - Neurological Exam Neurological exam: Alert, Oriented x3 - Expanded Neurological Exam Expanded Patient oriented to: person, place, time Cranial nerves: EOM's Intact: Normal, Facial Palsey w/Forehead Movement: Normal, Facial Palsey w/o Forehead Movement: Normal, Facial Sensation: Normal, Gag Reflex: Normal, Nystagmus: Normal, Tongue Deviation: Normal Cerebellar Function: Finger to Nose: Normal Upper motor neuron: Pronator Drift: Normal Neuro motor strength exam: Left Upper Extremity: 5, Right Upper Extremity: 5, Left Lower Extremity: 5, Right Lower Extremity: 5 Coma Scale Eye Opening: SPONTANEOUS Coma Scale Motor Response: OBEYS COMMANDS Coma Scale Verbal: Oriented Coma Scale Total: 15 - Skin Skin Exam: Dry, Intact, Normal Color, Warm Assessment and Plan - Assessment and Plan (Free Text) Assessment: 38 year old female with a past medical history significant for HTN, depression, PTSD, bipolar, ADD and polysubstance abuse who presented with depression and hallucinations. Neurology was consulted to rule out seizures. Plan: -MRI Brain with and without contrast (10/26) unremarkable -EEG done and read as normal, per Dr. Gonzales; Official report to follow -Encouraged cessation of all illicit drug use -Further recommendations as per Dr. Gonzales Disposition: No further neurological imaging/interventions are indicated at this time and our team will be signing off of this patient. Please feel free to reconsult as indicated. Patient seen and case discussed with attending, Dr. Gonzales. Karlo Bliss PGY2 <Edagrd Gonzales - Last Filed: 10/28/18 22:51> Objective - Vital Signs/Intake and Output Vital Signs (last 24 hours): Temp Pulse Resp BP Pulse Ox 97.4 F L 78 20 128/88 96 10/27/18 07:13 10/27/18 07:13 10/27/18 07:13 10/27/18 07:13 10/24/18 00:43 - Labs Labs: 10/27/18 07:35 10/27/18 07:35 Assessment and Plan - Assessment and Plan (Free Text) Plan: Miss Garcia may have had a seizure and at this point MRI is normal. EEG will be needed to assess, but differential is schizophrenia. I examined the patient independently and formulated the assessment and plan. I agree with the above note. Dr. Gonzales, [facility] Neurology
--- NOTE | 2018-10-27 12:14 | PN ---
DATE: 10/27/2018 SUBJECTIVE: She is still having right foot pain. Today is the first day that she tells me, it actually comes from the low back pain possibly. We did do an x-ray of the foot which showed normal x-ray. It is very possible that she will be discharged from the psychiatric floor today. If that is the case, I will see her in the office. She might need an MRI of her LS spine. She also had an MRI of her brain which was good. PHYSICAL EXAMINATION: VITAL SIGNS: She has a 97.4 temperature, 78 pulse, 120/88 blood pressure, 20 respiratory rate. HEAD: Atraumatic, normocephalic. HEART: Regular rate. LUNGS: Clear to auscultation. ABDOMEN: Soft, obese. EXTREMITIES: No edema. The right foot is tender, but x-rays are normal. I got to see an MRI of the low back. LABORATORY DATA: She had 5.3 white count, 12.5 hemoglobin, 270 platelets. Sodium 140, potassium 4.3, BUN 17, creatinine 0.8, GFR is greater than 60, sugar is 91, calcium is 8.9, total bili is 0.3. TSH is 2.06. ASSESSMENT AND PLAN: She did well with the blood tests. She is feeling better overall. She might be discharged with Psychiatry, which would not be a bad idea. We will follow up in the outpatient. I am hoping that she will see me, take the medications for her depression to workup her right foot pain, possibly from the low back. Mahamed Keenan DO MTDD
--- NOTE | 2018-10-27 15:09 | PCM.PYCHDC ---
Mental Status Examination - Mental Status Examination Orientation: Person, Place, Situation, Time Memory: Intact Mood: Neutral Affect: Constricted (But reactive, congruent) Speech: Appropriate Attention: WNL Concentration: WNL Association: WNL Fund of Knowledge: WNL Formal Thought Process: Other (Patient reported auditory hallucinations which seems to be chronic, not command type) Description of patient's judgement and insight: Pt has improved insight into mental and medical illness, pt was compliant with medications and unit rules and regulations, pt was attending therapy groups, was calm, cooperative, socially appropriate, no behavioral incidents, no agitation, no aggression. Psychotic Thoughts and Behaviors: Pt denied v/a/t hallucinations, denied paranoid ideations, pt does not appear to be psychotic, and thought process is goal directed. Suicidal Ideation: No Current Homicidal Ideation?: No Plan: pt adamantly denied thoughts of harming self or others denied intent or plan. Discharge Summary - Discharge Note Reason for Hospitalization: Patient was admitted to the psychiatric inpatient unit for evaluation and stabilization of depressive symptoms, inability to function, command type hallucinations telling her to kill herself. Psychiatric History (includes Medical, Family, Personal Hx): See HPI Laboratory Data: Abnormal Lab Results 10/27/18 10/27/18 07:35 07:35 WBC 5.3 D RBC 4.53 Hgb 12.5 Hct 38.9 MCV 85.9 MCH 27.6 MCHC 32.1 RDW 13.7 Plt Count 270 MPV 9.8 Sodium 140 Potassium 4.3 Chloride 107 Carbon Dioxide 26 Anion Gap 12 BUN 17 Creatinine 0.8 Est GFR ( Amer) > 60 Est GFR (Non-Af Amer) > 60 Random Glucose 91 Calcium 8.9 Total Bilirubin 0.3 AST 14 D ALT 9 Alkaline Phosphatase 61 Total Protein 6.7 Albumin 3.7 Globulin 3.0 Albumin/Globulin Ratio 1.2 Consultations:: List each consultation separately and include: 1. Reason for request. 2. Findings. 3. Follow-up Consultations: Patient was seen by medical team, x-ray of the right foot ordered Neurology consultation was called to rule out seizures Please see notes for more detailed information. Summary of Hospital Course include:: 1. Description of specific treatment plan utilized for patients during their course of treatmen. 2. Summarize the time- course for resolution of acute symptoms and/or regressed behaviors. 3. Describe issues identified and worked on during hospitalization. 4. Describe medication utilized. 5. Describe medical problems identified and treated. 6. Reassessment of suicide risk Summary of Hospital Course: Shortly pt is 38yo female with h/o schizoaffective disorder bipolar type vs bipolar disorder with psychosis two previous hospitalization first in in 2014, second in 2016 about a year ago to this facility, currently under care of , , mother of two (pt's and her parents takes care of kids now), patient was brought in to the hospital by her for evaluation of depression, command type hallucinations, patient was not able to contract for safety in the emergency room, patient required further evaluation and stabilization and medication adjustment. Please see admission note for more de tailed information patient was stabilized on the following medications: Abilify was increased to 25 mg daily for psychosis and mood stabilization valium was continued at the same dose 5 mg twice a day Prozac was increased to 50 mg daily for depression and anxiety Ambien was continued 10 mg at the nighttime for insomnia Amphetamines recommended to be discontinued Patient tolerated medications well, no side effects observed or reported, aims 0, no EPS. Patient was seen by medical team/neurology team please see consultation notes for more detailed information 10/23/18 22:58 10/23/18 22:58 Lab Results 10/24/18 07:30: RPR Nonreactive 10/24/18 07:30: TSH 3rd Generation 2.06 10/24/18 07:30: Fasting Glucose 101, Triglycerides 83, Cholesterol 175, LDL [place] Direct 110, HDL Cholesterol 50 10/23/18 23:09: Urine Color Yellow, Urine Appearance Clear, Urine pH 6.0, Ur Specific [place] >= 1.030, Urine Protein Negative, Urine Glucose (UA) Negative, Urine Ketones Trace H, Urine Blood Small H, Urine Nitrate Negative, Urine Bilirubin Negative, Urine Urobilinogen 0.2, Ur Leukocyte Esterase Negative, Urine RBC 1 - 3 H, Urine WBC 1 - 3, Ur Epithelial Cells 1 - 3, Urine Bacteria Few, Urine Other Mucus 10/23/18 23:00: Urine Opiates Screen Negative, Urine Methadone Screen Negative, Ur Barbiturates Screen Negative, Ur Phencyclidine Scrn Negative, Ur Amphetamines Screen Positive H, U Benzodiazepines Scrn Positive H, U Oth Cocaine Metabols Negative, U Cannabinoids Screen Positive H 10/23/18 22:58: Alcohol, Quantitative < 10 10/23/18 22:58: Salicylates < 1 L, Acetaminophen < 10.0 L 10/23/18 22:58: Sodium 142, Potassium 4.3, Chloride 107, Carbon Dioxide 26, Anion Gap 13, BUN 16, Creatinine 0.9, Est GFR ( Amer) > 60, Est GFR (Non- Af Amer) > 60, Random Glucose 91, Calcium 9.3, Total Bilirubin 0.4, AST 20, ALT 13, Alkaline Phosphatase 73, Total Protein 7.4, Albumin 4.3, Globulin 3.0, Albumin/Globulin Ratio 1.4 10/23/18 22:58: WBC 8.7, RBC 4.51, Hgb 12.8, Hct 38.8, MCV 86.0, MCH 28.4, MCHC 33.0, RDW 14.1, Plt Count 320, MPV 9.9, Neut % (Auto) 61.5, Lymph % (Auto) 27.6, [place] % (Auto) 6.8 H, Eos % (Auto) 4.0, Baso % (Auto) 0.1, Lymph # (Auto) 2.4, [place] # (Auto) 0.6, Eos # (Auto) 0.4, Baso # (Auto) 0.01, Absolute Neuts (auto) 5.35 Vital Signs Temp Pulse Pulse Resp BP Pulse Ox 10/24/18 07:21 98.1 F 80 20 121/82 10/24/18 03:59 83 18 10/24/18 00:43 97.7 F 90 18 136/84 96 10/23/18 21:54 98.1 F 90 18 168/115 H 100 Over the course of this hospitalization pt was attending groups, pt also had medication management, had therapeutic milieu. Overall pt improved significantly, pt's affect became brighter, pt was less depressed, has realistic future oriented plans, pt also does not appear to be psychotic, or anxious, pt was socially appropriate, no behavioral issues, pts insight improved as well and soon pt deemed to be ready for discharge. At the time of the discharge patient pose no imminent danger to self or others, will be following up with Dr. Aguayo, information about follow up appointment, time and address provided to the pt, (see SW note for more detailed information). It is a patient responsibility to follow up with outpatient clinic, PMD as well as specialists In case patient will need to obtain results of studies pending at discharge, patient was provided with contact information of Psychiatric Inpatient unit [phone] as well as Medical Record Department [phone], as well as [facility] Sales And Marketing Manager team [phone]. Patient denies smoking, denied drug using, denied alcohol consumption This copy writer recommended all of the medications to be continued This copy writer provided only 2 prescriptions for Prozac 10 mg as well as Abilify 5 mg, please see medication reconciliation form for more detailed information. Moreover patient filled medications in her pharmacy less than 2 weeks ago. Pt was educated about safety plan in case of worsening of symptoms or in case of suicidal or homicidal ideation call 911 or go to the nearest ER, also was educated to take meds as prescribed and stay away from drugs, pt verbalized understanding. - Diagnosis (1) Bipolar affective disorder, mixed, severe, with psychotic behavior Status: Chronic Priority: High - Final Diagnosis (DSM 5) Condition upon Discharge: IMPROVED Disposition: HOME/ ROUTINE Follow-up Treatment Plan: Over the course of this hospitalization pt was attending groups, pt also had medication management, had therapeutic milieu. Overall pt improved significantly, pt's affect became brighter, pt was less depressed, has realistic future oriented plans, pt also does not appear to be psychotic, or anxious, pt was socially appropriate, no behavioral issues, pts insight improved as well and soon pt deemed to be ready for discharge. At the time of the discharge patient pose no imminent danger to self or others, will be following up with Dr. Aguayo, information about follow up appointment, time and address provided to the pt, (see SW note for more detailed information). It is a patient responsibility to follow up with outpatient clinic, PMD as well as specialists In case patient will need to obtain results of studies pending at discharge, patient was provided with contact information of Psychiatric Inpatient unit [phone] as well as Medical Record Department [phone], as well as [facility] Sales And Marketing Manager team [phone]. Patient denies smoking, denied drug using, denied alcohol consumption This copy writer recommended all of the medications to be continued This copy writer provided only 2 prescriptions for Prozac 10 mg as well as Abilify 5 mg, please see medication reconciliation form for more detailed information. Moreover patient filled medications in her pharmacy less than 2 weeks ago. Pt was educated about safety plan in case of worsening of symptoms or in case of suicidal or homicidal ideation call 911 or go to the nearest ER, also was educated to take meds as prescribed and stay away from drugs, pt verbalized understanding. Prescriptions/Medication Reconciliation: ARIPiprazole [Abilify] 5 mg PO HS #14 tab FLUoxetine [Prozac] 10 mg PO DAILY #14 cap - Smoking Cessation Smoking Cessation Medication prescribed: No Reason for not providing: Patient denies smoking - Antipsychotic Medications Pt discharged on 2 or more routine antipsychotic medications: No
== END 2018-10-27 12:47 | disposition home or self-care (01) | DRG 753 ==
LOC: ED 19:35 → ERH 10-24 01:08 → PSYC 10-24 02:26
PROVIDERS: ADMIT Psychiatry & Neurology Psychiatry; ATTEND Psychiatry & Neurology Psychiatry
PROC: GZ3ZZZZ Medication Management (ICD-10-PCS; principal; 2018-10-25)
DX: F31.64 Bipolar disorder, current episode mixed, severe, with psychotic features (principal); I10 Essential (primary) hypertension; F12.90 Cannabis use, unspecified, uncomplicated; F43.10 Post-traumatic stress disorder, unspecified; E66.9 Obesity, unspecified; Z81.8 Family history of other mental and behavioral disorders